=== PATIENT | female | born 1975 | race Caucasian/White ===

== ENCOUNTER 2021-08-23 20:01 | Outpatient (REF) | payer OTHER, SELFPAY ==
[2021-08-23 20:09] LABS: Uric Acid 4.6 mg/dL (2.6-6.0)
[2021-08-23 20:14] LABS: Hemoglobin A1C 6.1 % (<5.7)
== END 2021-08-23 20:02 | disposition home or self-care (01) ==
LOC: NCHCN 20:01
PROVIDERS: Visit Provider Physician Assistant
DX: M10.9 Gout, unspecified (principal); R73.9 Hyperglycemia, unspecified
CPT/HCPCS: 83036; 84550

== ENCOUNTER 2021-08-25 01:04 | Outpatient (CLI) | payer OTHER, SELFPAY ==
--- NOTE | 2021-08-25 | DI.RAD_ITS ---
Exam(s) XR HIP LT COMPLETE AP PELVIS EXAM: XR HIP LT COMPLETE AP PELVIS CLINICAL HISTORY: LT HIP PAIN, M25.562 TECHNIQUE: COMPARISON: No exams were available for comparison FINDINGS: Three views were obtained. There is loss of the cartilaginous joint space of the left hip superiorly , severe. There are prominent marginal osteophytes of the acetabulum and femoral head. There is mil d subchondral sclerosis of the femoral head and acetabulum. The configuration of the acetabular oste ophytes raise the possibility of femoroacetabular impingement. Note is also made of moderate degenerative changes of the right hip. IMPRESSION: RADIATION DOSE DELIVERED: Total DLP
== END 2021-08-25 01:24 ==
PROVIDERS: Visit Provider Physician Assistant
DX: M25.552 Pain in left hip (principal); M16.12 Unilateral primary osteoarthritis, left hip
CPT/HCPCS: 73502

== ENCOUNTER 2022-09-18 02:12 | Outpatient (CLI) | payer OTHER, SELFPAY ==
--- NOTE | 2022-09-18 | DI.MAMMO_ITS ---
Exam(s) MAMMO SCREENING EXAM: MAMMO SCREENING CLINICAL HISTORY: SCREENING FOR BREAST CANCER Z12.39 TECHNIQUE: Bilateral full field digital CC and MLO mammographic images were obtained with 3D tomosyn thesis and utilizing computer aided detection (CAD). COMPARISON: Available for comparison. FINDINGS: Masses/Architectural Distortion: There is a stable 6-7 mm nodule in the central outer left breast. N o suspicious nodules are seen. No areas of architectural distortion are present. Microcalcifications: No suspicious pleomorphic-type are seen. Skin Thickening/Nipple Retraction: None. IMPRESSION: 1. No significant interval change with no specific features of malignancy noted. 2. Unless there is more urgent need, screening mammography is recommended, as per [employer] guidelines. BI-RADS Category 2 - Benign Findings Breast Density - Category B - Scattered areas of fibroglandular density Breast density category C or D implies that the patient has dense breast tissue. Dense breast tissue is very common and is not abnormal but dense breast tissue can make it harder to find cancer on a ma mmogram. Also, dense breast tissue may increase their breast cancer risk. This information about the result of the mammogram report was provided to the patient to raise their awareness. Use this report when you speak with the patient about their risks for breast cancer, which includes their family hist ory. At that time, you may recommend for more screening tests (Ultrasound or MRI) as they might be us eful based on their risk. A negative radiographic report should not delay biopsy if a dominant or clinically suspicious mass is present. Up to ten percent of cancers are not identified on mammography. A negative report may reinforce clinical impression. Adenosis and dense breasts may obscure an underlying neoplasm. False positive reports average 6 to 10%. Patient will receive a letter notifying them of these results.
== END 2022-09-18 02:32 ==
LOC: DI 02:12
PROVIDERS: PCP Physician Assistant; Visit Provider Physician Assistant
DX: Z12.31 Encounter for screening mammogram for malignant neoplasm of breast (principal)
CPT/HCPCS: 77063; 77067

== ENCOUNTER 2022-09-18 14:34 | Outpatient (CLI) | payer OTHER, SELFPAY ==
--- NOTE | 2022-09-18 14:30 | DI.RAD_ITS ---
Exam(s) XR PELVIS AP EXAM: XR PELVIS AP CLINICAL HISTORY: pain, with mag marker. TECHNIQUE: 2D digital imaging was performed.One images were obtained. COMPARISON: CR XR HIP LT COMPLETE AP PELVIS from 08/25/2021 FINDINGS: BONES: No acute fracture is present. No bony destructive lesion is seen. JOINTS: No dislocation present. There again seen marked degenerative changes of the left hip with sev ere narrowing of the superior joint space. Acetabular spurring is present. There is [id number] narrowing of the right hip. The visualized sacroiliac joints and symphysis pubis are unremarkable. SOFT TISSUE: Clips are seen in the pelvis. IMPRESSION: Osteoarthritis of the hips, left greater than right. DATA REPOSITORY: RADIATION DOSE DELIVERED:
== END 2022-09-18 14:35 | disposition home or self-care (01) ==
LOC: DIORS 14:34
PROVIDERS: PCP Physician Assistant; Referring Provider Physician Assistant; Visit Provider Physician Assistant
DX: M16.12 Unilateral primary osteoarthritis, left hip (principal); M16.11 Unilateral primary osteoarthritis, right hip
CPT/HCPCS: 72170

== ENCOUNTER 2023-01-04 03:49 | Outpatient (CLI) | payer OTHER, SELFPAY ==
[2023-01-04 13:53] LABS: HCT 42.1 % (36.0-46.0); HGB 14.3 g/dL (11.2-15.7); MCH 30.4 pg (27.0-33.0); MCV 90 fL (80-95); MPV 9.4 fL (8.0-11.0); Platelet Count 344 10^3/uL (130-400); RDW 12.2 % (11.7-14.6); RDW-SD 39.7 fL; WBC 7.87 10^3/uL (4.4-10.8)
[2023-01-04 15:35] LABS: Anion Gap 7.3 mmol/L (3-11); BUN 15 mg/dL (7-18); CO2 28.7 mmol/L (21.0-32.0); CREATININE 0.7 mg/dL (0.55-1.02); Calcium 9.5 mg/dL (8.5-10.1); Chloride 104 mmol/L (98-107); Estimated GFR 108.62 (mL/min/1.73m2); Glucose 75 mg/dL (74-106); Potassium 4.3 mmol/L (3.5-5.1); Sodium 140 mmol/L (136-145)
== END 2023-01-04 03:50 | disposition home or self-care (01) ==
LOC: LBO 03:49
PROVIDERS: PCP Physician Assistant; Visit Provider Student in an Organized Health Care Education/Training Program
DX: M16.12 Unilateral primary osteoarthritis, left hip (principal); M25.552 Pain in left hip; Z01.818 Encounter for other preprocedural examination; Z01.812 Encounter for preprocedural laboratory examination
CPT/HCPCS: 36415; 80048; 85027

== ENCOUNTER 2023-01-16 08:16 | Day surgery (SDC) | payer OTHER, SELFPAY ==
[2023-01-16] VITALS (10 sets, daily range): BP systolic 86–145; BP diastolic 37–90; PULSE 60–81; RESP 14–19; TEMP 36.1–36.6; O2SAT 98–100; BMI 43.0
[2023-01-16] MEDS: Acetaminophen 500 MG TAB 1000 MG PO (09:06)
[2023-01-16] MEDS: Celecoxib 200 MG CAP 400 MG PO (09:07)
--- NOTE | 2023-01-16 09:21 | W.ANESPRE ---
General Info Date of Service Date Performed: 01/16/23 Height: 5 ft 2 in Weight: 106.8 kg Body Mass Index (BMI): 43.0 Surgical Procedure: Operation Date: 01/16/23 11:20 Proposed Procedure Side Surgeon p Hip Total Hip Anterior Left Tal Henson MD Meds Allergies and Home Medications Allergies Allergy/AdvReac Type Severity Reaction Status Date / Time tiotropium Allergy Intermediate Other (See Verified 01/16/23 08:42 [From Spiriva with Comment) HandiHaler] codeine Allergy Unknown Other (See Verified 01/16/23 08:42 Comment) gabapentin Allergy Unknown Swelling/Ed Verified 01/16/23 08:42 maite hydrocodone Allergy Unknown Verified 01/16/23 08:42 Home Medication Medication Instructions Recorded semaglutide 2 mg/dose (8 mg/3 mL) 2 mg subcut QWEEK 07/11/22 subcutaneous pen injector (Ozempic) acetaminophen 500 mg tablet 1,000 mg PO Q8H PRN pain #90 tabs 01/16/23 aspirin 81 mg tablet,delayed 81 mg PO BID 30 days #60 tabs 01/16/23 release celecoxib 200 mg capsule (Celebrex) 200 mg PO BID PRN #60 caps 01/16/23 docusate sodium 100 mg capsule 100 mg PO BID #30 caps 01/16/23 (Colace) oxycodone 5 mg tablet 5 mg PO Q6H PRN #12 tabs 01/16/23 pantoprazole 40 mg tablet,delayed 40 mg PO DAILY #14 tabs 01/16/23 release Current Visit Medications: Current Medications Generic Name Dose Route Start Last Admin Trade Name Gus PRN Reason Stop Dose Admin Acetaminophen 1,000 mg 01/16/23 06:00 01/16/23 09:06 Acetaminophen 500 Mg Tab PO 02/15/23 05:59 1,000 mg PREOP BETTYE Administration Celecoxib 400 mg 01/16/23 06:00 01/16/23 09:07 Celecoxib 200 Mg Cap PO 02/15/23 05:59 400 mg PREOP BETTYE Administration Tranexamic Acid 1,000 mg/ 60 mls @ 360 mls/hr 01/16/23 06:00 Sodium Chloride IV 02/15/23 05:59 PREOP BETTYE Ringer's Solution 1,000 mls @ 80 mls/hr 01/16/23 06:00 IV 02/14/23 23:59 INFUSION BETTYE Cefazolin Sodium/Dextrose 2 gm in 50 mls @ 100 mls/hr 01/16/23 06:00 Ancef Duplex IVPB 02/14/23 23:59 PREOP BETTYE IV Miscellaneous Supplies 1 each 01/16/23 06:00 Iv Access IV 02/14/23 23:59 DIRECTED BETTYE Sodium Chloride 0 ml 01/16/23 06:00 Normal Saline Flush 10 Ml Syr IV 02/14/23 23:59 PRN PRN Sodium Chloride 0 ml 01/16/23 06:00 Normal Saline 10 Ml Vial IJ 02/14/23 23:59 DIRECTED PRN Sterile Water 0 ml 01/16/23 06:00 Water,Injection,Sterile 10 Ml Vial IJ 02/14/23 23:59 DIRECTED PRN PFSH Active Problems Active Problems: Problem Status Onset Code Prediabetes R73.03 Asthma J45.909 COPD (chronic obstructive pulmonary disease) J44.9 Osteoarthritis of left hip M16.12 Medical History Medical History Back pain GERD (gastroesophageal reflux disease) Gout Morbid obesity Scoliosis Medical History Comments:: Nervous; 2 yrs ago complications after cholecystectomy. Reports she can get shakes/chills postop. Surgical History Surgical History (Updated 01/16/23 @ 08:40 by Mary Langston) History of lumpectomy of right breast History of medial meniscus repair of left knee Hx of cholecystectomy 2 years ago; postop serious complications. Underwent surgery for dehiscence and stones in duct of Luschka and biloma. Hx of hysterectomy Hx of lumbar discectomy L4-L5 Hx of tubal ligation Tobacco Smoking/Tobacco Use Status: Current every day Tobacco Type: e-cigarettes Alcohol Alcohol Intake: current Alcohol intake frequency: a few times a month Substance Use Substance use type: does not use Vital Signs and Lab Results Vital Signs Most Recent Vital Signs in EMR: Most Recent Vital Signs Temp Pulse Resp BP Pulse Ox 36.1 C L 81 16 145/90 H 98 01/16/23 08:44 01/16/23 08:44 01/16/23 08:44 01/16/23 08:44 01/16/23 08:44 Lab Results Blood Type / Crossmatch: No Data to Display Complete Blood Count: White Blood Count 7.87 10^3/uL (4.4-10.8) 01/04/23 13:47 Red Blood Count 4.70 10^6/uL (3.93-5.22) 01/04/23 13:47 Hemoglobin 14.3 g/dL (11.2-15.7) 01/04/23 13:47 Hematocrit 42.1 % (36.0-46.0) 01/04/23 13:47 Platelet Count 344 10^3/uL (130-400) 01/04/23 13:47 Complete Metabolic Panel: Sodium 140 mmol/L (136-145) 01/04/23 13:47 Potassium 4.3 mmol/L (3.5-5.1) 01/04/23 13:47 Chloride 104 mmol/L (98-107) 01/04/23 13:47 Carbon Dioxide 28.7 mmol/L (21.0-32.0) 01/04/23 13:47 BUN 15 mg/dL (7-18) 01/04/23 13:47 Creatinine 0.7 mg/dL (0.55-1.02) 01/04/23 13:47 Est GFR (CKD-EPI 2020) 108.62 (mL/min/1.73m2) 01/04/23 13:47 Calcium 9.5 mg/dL (8.5-10.1) 01/04/23 13:47 Glucose 75 mg/dL (74-106) 01/04/23 13:47 Liver Function Panel: No Data to Display Coagulation Panel: No Data to Display Cardiac Panel: No Data to Display Arterial Blood Gas: No Data to Display Venous Blood Gas: No Data to Display Pancreas Panel: No Data to Display Thyroid Panel: No Data to Display Infectious Disease: No Data to Display Blood Cultures: No Data to Display Toxicology Panel: No Data to Display Panel: No Data to Display Anesthesia Assessment and Plan Anesthesia History Personal History: No History of Anesthesia Complications Family History: No Family History of Anesthesia Complications Exercise Tolerance Exercise Tolerance: Metabolic Equivalents>4 Pertinent Negatives Pertinent Negatives: No Symptoms of GERD, No Major Cardiovascular Symptoms or Complaints, No Major Pulmonary Symptoms or Complaints and No History of CVA/TIA Cardiac & Pulmonary Exam Cardiac Exam: Normal S1/S2 Heart Sounds Pulmonary Exam: Clear Bilateral Breath Sounds Implantable Cardiac Device Does patient have a Pacemaker or an ICD?: No Airway Exam Known Difficult Airway: No Mallampati Class: 1 Mouth Opening: Normal (> 3cm) Thyromental Distance: Greater than 3 cm Neck Range of Motion: Full ROM Neck Circumference: Normal Teeth Condition: Normal Dentition (lost a filling lower right molar) ASA Classification ASA Score: ASA 3 Emergency Case?: No NPO Status NPO Status: NPO Clears >2 hours, Solids >8 hours Status Status: History of Hysterectomy Anesthesia Plan Resuscitation Status: Full Code Anesthesia Technique: Spinal Anesthesia Airway Planned: Natural Airway Monitors Used: Standard Monitors Preoperative Comments:: Unsuccessful epidural attempts x 2 with labor. Wants to try spinal today, quick to convert to GETA if anatomically difficult.
--- NOTE | 2023-01-16 09:58 | W.PM.DS.N ---
Date of service: 01/16/23 Time of Service: 10:09 DS: Diagnosis Discharge Diagnosis (1) Osteoarthritis of left hip: Status: Chronic Discharge Plan Disposition Patient Disposition: Home Condition: Good Discharge Details Reason For Visit: Left hip DJD Attending Provider: Tal Henson Primary Care Provider: Dxa Sanchez Home Meds and New Rx's Prescriptions: New celecoxib [Celebrex] 200 mg capsule 200 mg PO BID PRNQty: 60 0RF Rx Instructions: Take one tablet twice daily for pain and inflammation aspirin 81 mg tablet,delayed release (DR/EC) 81 mg PO BID 30 Days Qty: 60 0RF acetaminophen 500 mg tablet 1,000 mg PO Q8H PRN Qty: 90 0RF Rx Instructions: Take two tablets up to every 8 hours as needed for pain pantoprazole 40 mg tablet,delayed release (DR/EC) 40 mg PO DAILY Qty: 14 0RF docusate sodium [Colace] 100 mg capsule 100 mg PO BID Qty: 30 0RF oxycodone 5 mg tablet 5 mg PO Q6H PRNQty: 12 0RF Rx Instructions: Take one tablet up to every 6 hours as needed for severe postoperative pain Continued Ozempic 2 mg/dose (8 mg/3 mL) pen injector 2 mg subcut QWEEK Discontinued oxycodone-acetaminophen [Percocet] 10-325 mg tablet 1 tab PO BID PRN Discharge Instructions Additional Instructions: Total Hip Discharge Instructions Activity: The most important activity is to walk. You should try to take short walks a few times a day. You have no restrictions on movement or positioning, but do not try to force what you do. You will find some stiffness and weakness with hip flexion (lifting your knee). Do not try to strengthen this too early, continue to practice walking and stairs and this will come. - Outpatient physical therapy can be helpful to help return you to a normal gait and improve your flexibility and strength. This can start around 2 weeks. For some patients, it?s not necessary. Usually this is determined at the time of discharge or at the first post-operative visit. - You should wear the JERMAINE hose on both legs for 2 weeks. Dressing: Keep the surgical dressing in place for at least one week. After the first week it may be removed and replace with light gauze and tape or nothing. It may get wet after 3 days but avoid soaking the dressing. If it gets wet, just lightly pat dry. It is important to always keep some gauze between skin folds, especially when you are sitting. Spend some time with the wound exposed when you are lying flat as the incision does wrinkle onto itself. Medications: - You should take Tylenol and an anti-inflammatory Celebrex as your primary pain control medications. If the Celebrex is too expensive or not covered, please call the office for another alternative (Advil/Ibuprofen or Naproxen/Aleve). - You have been prescribed a stronger pain medication Oxycodone for breakthrough pain, take as needed as prescribed. - You have also been prescribed a stomach acid reduction agent Pantoprozole to help reduce stomach acid and reflux. - You will be taking Aspirin 81mg twice a day for DVT prevention unless instructed otherwise. - If you have constipation you should take Colace (which has been prescribed)or Miralax (which is available [id number]). It takes most people 3-4 days to have a bowel movement. Follow-up: 2 weeks If you have any acute concerns or questions, please do not hesitate to contact the office at [phone]. You may contact Dr. Henson with any questions after hours through the hospital at [phone] or on his cell phone at [phone]. Stand Alone Forms: Anesthesia Discharge Inst., Ivone.Nerve Block Instructions, [facility] ([facility]) Referrals: Tal Henson MD [ [facility] STAFF PHYSICIAN] - 01/29/23 2:00 pm Equipment/Supplies: Walker Activity:: Activity as Tolerated Remove Dressings/Wound Care:: Do Not Remove Shower/Bathe:: 72 hours and Cover Diet:: As Tolerated Discharge Orders Discharge Orders: Discharge Order (Routine); Ordered 01/16/23 Ordered By: Tal Henson Discharge Data Discharge Date/Time-TO BE ENTERED AT DEPARTURE: 01/16/23 15:00 DS: Summary Time Spent with Patient providing and/or coordinating discharge services: Less than 30 minutes Status at Discharge Functional status at discharge: uses cane/walker Overall status at discharge: patient is progressing back to baseline Mental Status: mental status grossly normal Speech and Movement: speech and movement normal Mood: congruent mood Affect: normal affect Exam Psych Mental Status: mental status grossly normal Speech and Movement: speech and movement normal Mood: congruent mood Affect: normal affect DS: Data Vitals/I&O Vitals and I&O: Vital Signs Temperature 97.0 F L 01/16/23 08:44 Pulse 81 01/16/23 08:44 Pulse Rhythm Regular 01/16/23 08:44 Respiratory Rate 16 01/16/23 08:44 Respiratory Depth Normal 01/16/23 08:44 Blood Pressure 145/90 H 01/16/23 08:44 Pulse Oximetry 98 01/16/23 08:44 Oxygen Delivery Method Room Air 01/16/23 08:44 Oxygen Flow Rate 0 01/16/23 08:44 Pain Level 6 01/16/23 08:44 Comment 09/23 hip 01/16/23 08:44 Intake & Output 01/15/23 01/15/23 01/16/23 11:59 23:59 11:59 Weight 230 lb 235 lb 7.259 oz PFSH All Active Problems Prediabetes (Acute) Asthma (Chronic) COPD (chronic obstructive pulmonary disease) (Chronic) Osteoarthritis of left hip (Chronic) Medical History Back pain GERD (gastroesophageal reflux disease) Gout Morbid obesity Scoliosis Surgical History (Updated 01/16/23 @ 08:40 by Mary Langston) History of lumpectomy of right breast History of medial meniscus repair of left knee Hx of cholecystectomy 2 years ago; postop serious complications. Underwent surgery for dehiscence and stones in duct of Luschka and biloma. Hx of hysterectomy Hx of lumbar discectomy L4-L5 Hx of tubal ligation Social History Smoking/Tobacco Use Status: Current every day Tobacco Type: e-cigarettes Smoking risk assessment performed?: Yes Alcohol Intake: current Alcohol Intake frequency: a few times a month Substance use type: does not use Housing: apartment Current gender identity: female Do you feel safe at home: Yes Do you feel safe in your relationship?: Yes Time Spent with Patient Time Spent with Patient: <45 minutes Time was spent: counseling the patient and care coordination
[2023-01-16] MEDS: Lactated Ringers 1,000 ML 80 ML IV (10:10)
[2023-01-16] MEDS: ceFAZolin 2 GM/50 ML BAG IVPB (10:22)
--- NOTE | 2023-01-16 11:40 | DI.RAD_ITS ---
Exam(s) XR HIP LT IN OR EXAM: XR HIP LT IN OR CLINICAL HISTORY: DJD LEFT HIP. TECHNIQUE: 2D and realtime digital imaging was performed. COMPARISON: CR XR PELVIS AP from 09/18/2022 FINDINGS: Hard copy image shows placement of a left hip prosthesis. The alignment appears satisfactory. Please see procedure note for details. Fluoro time: 32.5 seconds RADIATION DOSE DELIVERED: Ka,r=3.71 mGy
--- NOTE | 2023-01-16 11:50 | W.PM.OP ---
Date of service: 01/16/23 Time of Service: 11:50 Operative Note Operative Note DATE OF PROCEDURE: 01/16/23 PRE-OP DIAGNOSIS: Left Hip Osteoarthritis POST-OP DIAGNOSIS: same PROCEDURE: Left Anterior Total Hip Arthroplasty with Intraoperative Navigation SURGEON: Tal Henson DEMAND PLANNER: Tayler Vilchis ANESTHESIA TYPE: Spinal Refer to Anesthesia Record ESTIMATED BLOOD LOSS: 300 PATHOLOGY: none sent TOURNIQUET TIME: 0 COMPLICATIONS: None Patient was transported to: PACU Patient's condition: stable Implants: 1. Depuy [place] Acetabular Component, 52mm 2. Depuy Acetabular Liner, [id number] 3. Depuy Actis High Collared Femoral Stem, Size 4 4. Depuy Altrx Ceramic Femoral Head, Size 36+1.5mm Indications: I have seen Marcela in clinic for symptoms of hip arthritis, confirmed with radiographic findings. She has exhausted nonoperative methods and was having significant limitations in daily function and desired better function and less pain. I discussed the technical details of a hip replacement. I explained the risks of the procedure to include, but not limited to, bleeding, infection, pain, stiffness, fracture, damage to nerves and vessels, damage to muscles and tendons, loosening, instability, leg length inequality, need for repeat procedure, blood clot and cardiopulmonary demise. Despite these risks, Marcela elected to proceed. Findings: There was significant signs of arthritis throughout the hip with large femoral neck osteophytes and a large floor osteophytes. Procedure Description: Marcela was greeted in the preoperative holding area where the correct side was identified and marked. The consent was reviewed with the patient and signed. The history and physical was updated. All questions were answered. She was taken back to the operating room. A spinal anesthestic was then administered. The feet were wrapped with cast padding and Coban and then placed into the boot liners and then into the boots. Care was taken to protect the skin and make sure the heels were fully down and the boots were stable. The patient was then positioned onto the HANA table. Both legs were held in a neutral position. SCDs were applied. The patient was then slid down onto a peroneal post. Prophylactic antibiotics in the form of Cefazolin were administered. 1g of Tranxemic Acid was given intravenously within 30 minutes of incision. The left leg was then prepped with Chloraprep and draped in a standard fashion. A second prep with Chloraprep was performed prior to placement of a shower-curtain type drape with Iodine impregnated skin protection. A timeout to confirm correct identity, side and site, procedure, allergies, anesthesia, and medical concerns was performed. An obliquely oriented incision was made starting lateral to the ASIS and running distal over the Tensor Fascia Carli (TFL) muscle belly toward the fibular head, approximately 10cm. The skin and soft tissue was dissected sharply, through Rosie?s fascia, and to the fascia of the TFL. With the fascia and superior border of the IT band identified, the fascia was incised with a new knife just above any perforators from the IT band. The TFL muscle belly was bluntly dissected away from the fascia and moved laterally. The fat between TFL and rectus was identified to ensure the dissection was not within the TFL. Blunt dissection created space between abductors and the capsule and retractor was placed over the lateral femoral neck. The fibers of the rectus femoris tendon were identified and these were freed from the anterior capsule. A second cobra retractor was placed around the medial femoral neck. The TFL was further retracted laterally to show the deep fascia. Careful dissection through this layer identified three main crossing vessels of the lateral femoral circumflex. These were cauterized in multiple locations and then cut without any noticeable bleeding. The TFL was further released bluntly from the deep fascia to expose anterior hip capsule and fat The Matthew orthopaedic retractor was then placed beneath the TFL and against sartorius and medial soft tissues to protect and retract the soft tissues. A T-capsulotomy was then performed starting at the superior lateral acetabulum and moving distally to the intertrochanteric ridge. These capsular flaps were tagged with a No. 1 Ethibond and elevated from within. The capsular flaps were released to the shoulder of the lateral neck and to the lesser trochanter to give excellent visualization of the proximal femur. A neck osteotomy was performed using an oscillating saw based on preoperative templates. This cut started in the shoulder and of the lateral neck and exited medially. The saw was at all times directed medially to avoid injury to the greater trochanter. Gross traction was applied to the leg and the osteotomy opened. The femoral head was removed with a corkscrew, making sure to protect the TFL on its exit. Traction was released after head removal. This was measured on the back table to determine the starting reamer size. Portions of the rectus obscuring visualization were minimally elevated off the superior acetabulum. An anterior retractor was placed over the anterior wall between capsule and labrum and attached to the Gripper retraction system. The femur was rotated to 90 degrees and medial capsule was fully released until the lesser trochanter was palpable and visible; the femur was returned to 30 degrees. A posterior retractor was placed similarly between capsule and labrum. This provided excellent visualization. The contents of the cotyloid fossa were removed with electrocautery and the labrum was removed with a knife. There was a notable floor osteophyte. Acetabular reaming began with a 48mm reamer. This first reaming was directed anterior to posterior and medial to get down to the true floor. This was inspected and reamed until the true floor was reached. The anterior retractor was then released and entry and exit was provided by traction on the capsular flaps. I then reamed sequentially up to a 52mm reamer where good fit was obtained. The larger reamers were oriented based on anatomical reference of the anterior and lateral spicer to ensure proper abduction and anteversion. Positioning and size was confirmed with the fluoroscopy. A 52mm Depuy [place] acetabular component was selected. The acetabulum was reamed around the periphery with the selected acetabular size to prevent a rim fit. The deep tissues were irrigated. The acetabular component was then impacted in a position of about 40-45 degrees of abduction and 15-20 degrees of anteversion, using the patient?s anatomy as the ultimate landmark. Fluoroscopy was used to confirm this. There was excellent customer care consultant of the acetabular component and the inserting handle was removed. The acetabular liner, Depuy [id number] polyethylene liner, was inserted and lined up with the tines of the acetabular component. There was no soft tissue interposition. The liner was then impacted into position and confirmed to be well-seated. A portion of the cirilo-articular cocktail was then injected around the acetabulum into the capsule and periosteum. This cocktail consisted of 123mg of Ropivacaine, 0.25mg of Epinephrine, 0.04mg of Clonidine, and 15mg of Ketorolac, diluted to 50cc. The leg was rotated to 120 degrees. Any remaining medial capsule was released until the lesser trochanter was easily palpable. A retractor was placed medially. The lateral capsule was further released into the shoulder to allow access to the greater trochanter. A Segura retractor was placed over the greater trochanter which allowed the trochanter to flip in front of the capsule for excellent exposure. The leg was brought down into maximal extension and 20 degrees of adduction while ensuring there was no impingement on the acetabulum. Any remnant capsule within the trochanter was released. Piriformis and obturator externis were identified and protected. There was excellent access to the proximal femur. The lateral neck remnant was removed with a rongeur. A blunt canal probe was used to identify the canal and trajectory for later broaching. A box osteotome initiated the broach course. A small curved rasp and a curved curette were used to work laterally. Broaching then began with a starter Actis broach. This was inserted manually around the trochanter and into the canal before mallet blows. The broach was seated to a few millimeters below the cut level based on the neck cut and the preoperative template. Sequential broaching was continued with the [employer] pneumatic broaching device until a tight fit was obtained with good rotational control of the femur. A trial high neck was inserted along with a +1.5 trial head. The leg was brought out of extension and adduction and then reduced with traction and internal rotation. The leg was stable anteriorly in a position of 30 degrees of extension and 90 degrees of external rotation. Fluoroscopy was used to ensure there was no fracture and the stem was seated well. Leg lengths were checked with an AP pelvis and pelvic reference points. AeroSurgical navigation system was used to confirm appropriate positioning and leg length and offset. Once content with the desired offset and leg lengths, the leg was brought back into extension, external rotation and adduction. The periosteum and surrounding tissue was injected with remaining portion of the cirilo-articular cocktail. The proximal femur was irrigated as well as the deep tissues. The [place] Actis high collared stem, size 4, was then manually inserted into the proximal femur making sure to control rotation. It was then malleted into position with light blows, giving breaks to allow bone expansion and decrease risk of fracture. The selected Depuy Altrx Ceramic Head, size 36+1.5mm, was then placed onto the clean and dry trunnion and secured with impaction onto the tapered fit. The leg was brought back out of extension and adduction and reduced with traction and internal rotation. Stability was confirmed with no shuck at 90 degrees of external rotation and 30 degrees of extension. No impingement through range of motion arc. Final x-ray images were obtained with fluoroscopy to confirm adequate positioning and no intraoperative fracture. The deep tissues were thoroughly irrigated with Surgiphor, betadine solution. This was allowed to sit in the wound for 3 minutes before being thoroughly irrigated out with normal saline. The capsule was then reapproximated with the previously placed Ethibond sutures. The TFL fascia was finally closed with a No. 2 Stratafix, barbed suture. Deep tissues were then reapproximated with 0 Vicryl and a running 2-0 Vicryl. The skin was closed with a running 4-0 Monocryl in a subcuticular fashion. This was reinforced with skin glue. A Mepilex silver dressing was applied. At the end of the case, all counts were correct. Marcela was transferred to the hospital bed without difficulty and suffering no apparent complication. Marcela has a good prognosis. Physical therapy will start today and without restrictions, weight-bearing as tolerated. Aspirin 81mg BID will be used for DVT prophylaxis.
[2023-01-16] MEDS: fentaNYL 100 MCG/2 ML VIAL IVP ×2 (12:45→13:00)
--- NOTE | 2023-01-16 13:17 | W.ANESPOSTOP ---
Postoperative Evaluation Date, Time and Location Date Performed: 01/16/23 Time Performed: 13:09 Patient Location: PACU Vital Signs Most Recent Imported Vital Signs: Most Recent Vital Signs Temp Pulse Resp BP Pulse Ox 36.3 C L 67 16 115/59 L 100 01/16/23 12:59 01/16/23 12:59 01/16/23 12:59 01/16/23 12:59 01/16/23 12:59 Pain Score Most Recent Pain Score: Most Recent Pain Score Pain Level 3 01/16/23 12:59 Assessment Mental Status: Awake (Alert & Oriented to Patient Baseline) Airway and Respiratory Function: Patent airway with normal (patient baseline) respiratory exam Cardiovascular Function: Hemodynamically Stable Hydration Status: Adequately Hydrated Nausea & Vomiting: No Nausea or Vomiting Pain: Pain is tolerable per patient Peripheral Nerve Block: Patient did not receive a nerve block
[2023-01-16] MEDS: oxyCODONE 5 MG TAB PO (13:20)
[2023-01-16] MEDS: Methocarbamol 750 MG TAB PO (14:02)
--- NOTE | 2023-01-16 14:20 | PT.INIE ---
PT Notes Visit Reasons: Left hip DJD Physical Therapy Day Surgery Initial Evaluation Date: 01/16/2023 Referring Doctor: ELIZABETH Ni PT Orders: PT CONSULT: S/P Ortho Surgery Precautions: WBAT on the L LE with AD. Patient Profile/Admitting Diagnosis: Marcela is a 47-year-old female with degenerative joint disease of the left hip and is status post left anterior total hip arthroplasty on postoperative day 0. PMHX: Medical History?(Updated 01/02/23 @ 14:47 by Tayler Vilchis) Back pain GERD (gastroesophageal reflux disease) Gout Morbid obesity Scoliosis Social History/Home Situation: Independent with all aspects of ADLs prior to surgery although had been having difficulty due to worsening pain from arthritis on the left hip. Nurse traveler. Lives with in a private home with 3 steps to enter, the railings wide apart.. Equipment Owned/DME: None Subjective: Complains of 2/10 pain in the left hip at rest and with movement. Objective: General Observation: Seated on bedside chair. MepThe [employer] Ag over surgical incision. TDS to be legs. Mental Status: Alert and oriented x4 Pain: As above ROM: Right Lower Extremity: Hip flexion WFL. Hip abduction WFL. Knee flexion WFL. Ankle dorsiflexion WFL. Ankle plantarflexion WFL. Left Lower Extremity: Hip flexion WFL. Hip abduction WFL. Knee flexion WFL. Ankle dorsiflexion WFL. Ankle plantarflexion WFL. Strength: Right Lower Extremity: Hip flexors 5/5. Hip abductors 5/5. Knee flexors 5/5. Knee extensors 5/5. Ankle dorsiflexors 5/5. Ankle plantarflexors 5/5. Left Lower Extremity:Hip flexors 4/5. Hip abductors 4/5. Knee flexors 5/5. Knee extensors 4/5. Ankle dorsiflexors 5/5. Ankle plantarflexors 5/5. Sensation: Intact as to pain and light pressure in bilateral lower extremities Bed Mobility/Transfers: Sit to stand standby assist with cues provided to use B hands for support Stand to sit standby assist with cues provided to use B hands for support Bed to chair standby assist with cues provided to use B hands for support Gait: Facilitated safe and correct performance of level surface ambulation with a distance of 150 feet using front wheeled walker with standby assist, step through gait pattern. No LOB. No SOB. Denies headache, chest pain, and lightheadedness throughout session. Balance: Static Sitting: Normal Dynamic Sitting: Normal Static Standing: Fair Dynamic Standing: Fair Special Tests: Mobility Limitations Standardized Measure [facility] AM-PAC 6 clicks Basic Mobility Inpatient Short Form: Raw Score: 23 CMS Score: 11% deficit Informed Consent/Education: Patient instructed in purpose of PT consult. Packet containing LEONARDO exercise protocol has been given to patient. Trained patient with correct performance of exercises below to maximize motor control, joint flexibility, soft tissue extensibility of the L hip musculature to facilitate return to independent functional mobility performance. Access Code: [email or web address] URL: [email or web address] Date: 01/16/2023 Prepared by: She Hernandez Exercises - Gluteal Sets - 1 x daily - 7 x weekly - 1 sets - 10 reps - 5 hold - Supine Heel Slide - 1 x daily - 7 x weekly - 1 sets - 10 reps - 5 hold - Supine Ankle Pumps - 1 x daily - 7 x weekly - 1 sets - 10 reps - 5 hold - Seated March - 1 x daily - 7 x weekly - 1 sets - 10 reps - 5 hold - Seated Long Arc Quad - 1 x daily - 7 x weekly - 1 sets - 10 reps - 5 hold Assessment: Marcela demonstrates functional mobility decline requiring the use of a front wheeled walker for all mobility ADL performance to maximize independence and reduce fall risk. Patient presents with clinical signs and symptoms consistent with current/admitting diagnoses that have resulted to mobility limitations, gait instability, generalized weakness, and impairment of motor control as demonstrated by the following impairment level findings: 1. Decreased strength to left hip major muscle groups 2. Impaired standing balance 3. Limitation of joint range of motion in left hip Impairments are contributing to the following functional limitations: 1. Inability to safely ambulate without assistive device 2. Increase completion time for mobility ADL performance 3. Increased fall risk Patient is assessed as a [id number] moderate complexity based on the following: History: 47-year-old female with impairment level findings, functional limitations, and past medical history as indicated above Examination: Demonstrable impairment in strength, balance, and mobility level with underlying impairments and functional limitations as documented above Presentation: Evolving Decision Makin moderate complexity Goals: N/A. PT evaluation and 1-2 treatment sessions only for functional mobility training using recommended AD and for HEP instruction. Plan of Care/Treatment Plan: N/A. PT evaluation and 1-2 treatment session only for functional mobility training using recommended AD and for HEP instruction. DISCHARGE RECOMMENDATIONS: Home when medically cleared by orthopedic surgeon. Recommend outpatient PT services in order to optimize functional mobility outcomes and facilitate return to independent community ambulation without an assistive device. TREATMENT CODE/TIME: 69816 x 26 minutes for 1 unit beginning at 14:20 PM. Thank you for the opportunity to participate in the care of this patient. She Hernandez PT, DPT, CLT [facility] [place], [place]
== END 2023-01-16 15:00 | disposition home or self-care (01) ==
PROVIDERS: PCP Physician Assistant; Visit Provider Student in an Organized Health Care Education/Training Program
PROC: (CPT 27130; principal; 2023-01-16 11:00)
DX: M16.12 Unilateral primary osteoarthritis, left hip (principal); R73.03 Prediabetes; J44.9 Chronic obstructive pulmonary disease, unspecified; E66.01 Morbid (severe) obesity due to excess calories; Z68.41 Body mass index [BMI] 40.0-44.9, adult
CPT/HCPCS: 27130; 20985; 97162; 73501; J0690; J1100; J2001; J2250; J2405; J3010

== ENCOUNTER 2023-01-29 15:29 | Outpatient (CLI) | payer OTHER, SELFPAY ==
--- NOTE | 2023-01-29 13:45 | DI.RAD_ITS ---
Exam(s) XR HIP LT COMPLETE AP PELVIS EXAM: XR HIP LT COMPLETE AP PELVIS CLINICAL HISTORY: HISTORY OF LEFT TOTAL HIP ARTHROPLASTY. TECHNIQUE: 2D digital imaging was performed. Two images were obtained. AP pelvis and lateral hip vi ews were obtained. COMPARISON: CR XR HIP LT COMPLETE AP PELVIS from 08/25/2021 CR XR PELVIS AP from 09/18/2022 XA XR HIP LT IN OR from 01/16/2023 FINDINGS: BONES: There are stable post operative changes of a left total hip replacement present. No fracture or dislocation. JOINTS: The orthopedic hardware is in good position. No evidence of hardware loosening. SOFT TISSUE: There are surgical clips in the pelvis which may reflect prior tubal ligation. IMPRESSION: Stable postoperative changes. DATA REPOSITORY: RADIATION DOSE DELIVERED:
== END 2023-01-29 15:30 | disposition home or self-care (01) ==
LOC: DIORS 15:29
PROVIDERS: PCP Physician Assistant; Visit Provider Student in an Organized Health Care Education/Training Program
DX: Z96.642 Presence of left artificial hip joint (principal); Z47.1 Aftercare following joint replacement surgery
CPT/HCPCS: 73502